=== PATIENT | male | born 1995 | race Caucasian/White ===

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

== ENCOUNTER 2017-03-28 23:11 | Emergency (ER) | payer MEDICAID | END 2017-03-29 01:20 | disposition home or self-care (01) | LOC: D.ER 23:11 | DX: L02.416 Cutaneous abscess of left lower limb (principal) ==

== ENCOUNTER 2017-06-26 00:06 | Emergency (ER) | payer MEDICAID ==
[2017-06-26 00:53] LABS: BASOPHILS 0.7 % (0-2); EOSINOPHILS 4.1 % (0-7); HEMATOCRIT 42.9 % (42.0-54.0); HEMOGLOBIN 15.1 g/dL (13.5-17.5); IMMATURE GRANULOCYTES 0.4 % (0-5); LYMPHOCYTES 27.9 % (15-50); MCH 28.5 pg (26.0-34.0); MCHC 35.2 g/dL (31.0-37.0); MCV 80.9 fL (80.0-100.0); MEAN PLATELET VOLUME 11.1 fL (7.4-10.4); NEUTROPHILS 54.9 % (40-80); PLATELET COUNT 157 10x3/uL (130-400); RDW 12.7 % (11.5-14.5); WBC 7.3 10x3/uL (4.8-10.8)
[2017-06-26 01:07] LABS: ALBUMIN 3.8 g/dL (3.4-5.0); ALKALINE PHOSPHATASE 75 U/L (46-116); ALT (SGPT) 90 U/L (10-68); BILIRUBIN - TOTAL 0.49 mg/dL (0.2-1.3); CALC OSMOLALITY 283 mosm/kg (275-300); CALCIUM 8.7 mg/dL (8.5-10.1); CARBON DIOXIDE 29.8 mmol/L (21.0-32.0); CHLORIDE - SERUM 104 mmol/L (98-107); CREATININE - SERUM 1.3 mg/dL (0.6-1.3); GLUCOSE 107 mg/dL (74-106); POTASSIUM - SERUM 3.8 mmol/L (3.5-5.1); PROTEIN - SERUM 7.5 g/dL (6.4-8.2); SODIUM 142 mmol/L (136-145); UREA NITROGEN 16 mg/dL (7-18); URIC ACID 11.5 mg/dL (2.6-7.2); eGFR NON AFRICAN AMERICAN 75 mL/min (90-120)
[2017-06-26 01:10] LABS: C-REACTIVE PROTEIN 0.2 mg/dL (0.0-0.9)
== END 2017-06-26 01:26 | disposition home or self-care (01) ==
LOC: D.ER 00:06
PROVIDERS: Family Medicine
DX: M10.072 Idiopathic gout, left ankle and foot (principal)